=== PATIENT | male | born 1970 | race Caucasian/White ===

== ENCOUNTER 2016-11-03 15:11 | Outpatient (CLI) | payer OTHER | END 2016-11-03 15:12 | disposition home or self-care (01) | DX: R60.9 Edema, unspecified (principal) ==

== ENCOUNTER 2016-11-10 09:17 | Outpatient (CLI) | payer OTHER | END 2016-11-10 09:18 | disposition home or self-care (01) | DX: R06.02 Shortness of breath (principal); R60.9 Edema, unspecified ==

== ENCOUNTER 2016-11-29 08:35 | Outpatient (CLI) | payer OTHER | END 2016-11-29 08:36 | disposition home or self-care (01) | DX: L03.90 Cellulitis, unspecified (principal) ==

== ENCOUNTER 2016-12-14 09:20 | Outpatient (CLI) | payer OTHER | END 2016-12-14 09:21 | disposition home or self-care (01) | DX: L03.90 Cellulitis, unspecified (principal); R60.9 Edema, unspecified; Z79.899 Other long term (current) drug therapy; R73.9 Hyperglycemia, unspecified ==

== ENCOUNTER 2016-12-21 10:21 | Outpatient (CLI) | payer OTHER | END 2016-12-21 10:22 | disposition home or self-care (01) | DX: L03.90 Cellulitis, unspecified (principal) ==

== ENCOUNTER 2019-01-16 08:01 | Outpatient (CLI) | payer OTHER ==
[2019-01-16 12:59] LABS: BASOPHILS % (AUTO) 0.2 %; EOSINOPHILS # (AUTO) 0.3 10^3/uL (0.0-0.7); EOSINOPHILS % (AUTO) 5.2 %; HGB - HEMOGLOBIN 14.7 g/dL (14.0-18.0); LYMPHOCYTES # (AUTO) 2.5 10^3/uL (1.5-3.5); LYMPHOCYTES % (AUTO) 39.7 %; MEAN CORPUSCULAR HEMOGLOBIN 29.4 pg (27.0-31.0); MEAN CORPUSCULAR HGB CONC 32.8 g/dL (32.0-36.0); MEAN CORPUSCULAR VOLUME 89.7 fL (80.0-94.0); MEAN PLATELET VOLUME 7.9 fL (7.4-11.4); MONOCYTES # (AUTO) 0.5 10^3/uL (0.0-1.0); MONOCYTES % (AUTO) 8.5 %; NEUTROPHILS % (AUTO) 46.4 %; PLT - PLATELET COUNT 272 10^3/uL (130-450); RED CELL DISTRIBUTION WIDTH 13.9 % (12.0-15.0); WHITE BLOOD COUNT 6.4 x10^3/uL (4.8-10.8)
[2019-01-16 13:05] LABS: HB2 TOTAL 16.1 g/dL; HEMOGLOBIN A1C 0.6 g/dL; HEMOGLOBIN A1C % 5.6 % (4.6-6.2)
[2019-01-16 13:07] LABS: ALBUMIN 4.4 g/dL (3.2-5.5); ALBUMIN/GLOBULIN RATIO 1.3 (1.0-2.2); ALKALINE PHOSPHATASE 49 IU/L (42-121); ALT ALANINE AMINOTRANSFERASE 27 IU/L (10-60); AST ASPARTATE AMINOTRANSFERASE 30 IU/L (10-42); BILIRUBIN,TOTAL 1.5 mg/dL (0.2-1.0); BUN - BLOOD UREA NITROGEN 19 mg/dL (6-20); CARBON DIOXIDE - CO2 28 mmol/L (21-32); CHLORIDE 102 mmol/L (101-111); CHOL/HDL RATIO 2.8 (<5.0); CHOLESTEROL 200 mg/dL; CREATININE 0.9 mg/dL (0.6-1.2); GFR - MDRD 90 (>89); GLUCOSE 98 mg/dL (70-100); HDL CHOLESTEROL 72 mg/dL; SODIUM 136 mmol/L (135-145); TOTAL PROTEIN 7.8 g/dL (6.7-8.2)
[2019-01-16 14:41] LABS: LDL CHOLESTEROL,DIRECT 127 mg/dL; LDLD/HDL RATIO 1.8 (<3.6)
== END 2019-01-16 23:59 | disposition home or self-care (01) ==
LOC: LAB.WCP 08:01
PROVIDERS: ATTEND Family Medicine
DX: Z00.00 Encounter for general adult medical examination without abnormal findings (principal); Z13.1 Encounter for screening for diabetes mellitus; N40.0 Benign prostatic hyperplasia without lower urinary tract symptoms
CPT/HCPCS: 36415; 80053; 80061; 83036; 83721; 84153; 84443; 85025

== ENCOUNTER 2019-04-08 11:15 | Emergency (ER) | payer OTHER ==
[2019-04-08 11:21] VITALS: BP 108/80
--- NOTE | 2019-04-08 11:51 | XRAY Report ---
Reason: injury Procedure Date: 04/08/2019 Accession Number: [id number] / [id number] Procedure: XR - Ankle 3 View RT CPT Code: FULL RESULT: EXAM: RIGHT ANKLE RADIOGRAPHY EXAM DATE: 04/08/2019 11:38 AM. CLINICAL HISTORY: Pain. COMPARISON: ANKLE 3 VIEW RT 01/02/2017 9:02 AM. TECHNIQUE: 3 views. FINDINGS: Bones: Tiny calcaneal plantar bone spur. Otherwise normal. No fractures or bone lesions. Joints: Normal. No effusion. No subluxations. The ankle mortise is normally aligned. Soft Tissues: Normal. No soft tissue swelling. IMPRESSION: Normal ankle radiography. No significant change when compared to prior examination. RADIA
--- NOTE | 2019-04-08 12:12 | ED Physician Documentation ---
PD HPI LOWER EXT INJURY - Stated complaint Stated Complaint: R ANKLE INJ - Chief complaint Chief Complaint: Ext Problem - History obtained from History obtained from: Patient - History of Present Illness PD HPI LOW EXT INJURY LOCATION: Right, Ankle Type of injury: Fall (about 5 feet from ladder, last night, landed onto feet flatly, and had onset of right ankle pain. Has pain and swelling of ankle, unable to bear weight due to the pain.) Timing - onset: Last night Timing - duration: Days (1) Timing - details: Abrupt onset, Still present Worsened by: Moving, Palpating, Other (weight bearing) Associated symptoms: Swelling. No: Weakness, Numbness Contributing factors: No: Anticoagulated, Prior ortho surgery Similar symptoms before: Has not had sx before Recently seen: Not recently seen Review of Systems Skin: denies: Abrasion (s), Laceration (s) Musculoskeletal: denies: Back pain Neurologic: denies: Focal weakness, Numbness PD PAST MEDICAL HISTORY - Past Medical History Cardiovascular: None Respiratory: None Musculoskeletal: None - Past Surgical History Past Surgical History: No - Present Medications Home Medications: Ambulatory Orders Medication Instructions Recorded Confirmed Hydrocodone/Acetaminophen [[place] 1 each PO Q6H PRN #20 tablet 04/08/19 5-325 Tablet] Naproxen 375 mg PO BID #20 tablet 04/08/19 Tamsulosin HCl [Flomax] 0.4 mg PO 04/08/19 - Allergies Allergies/Adverse Reactions: Allergies Allergy/AdvReac Type Severity Reaction Status Date / Time No Known Drug Allergies Allergy Verified 04/08/19 11:21 - Social History Does the pt smoke?: No Smoking Status: Never smoker Does the pt drink ETOH?: No Does the pt have substance abuse?: No - Immunizations Immunizations are current?: Yes - POLST Patient has POLST: No PD ED PE NORMAL - Vitals Vital signs reviewed: Yes - General General: Alert and oriented X 3, Well developed/nourished - Derm Derm: Normal color, Warm and dry - Extremities Extremities: Other (right ankle with diffuse swelling and tenderness around the proximal foot/ankle. Achilles not tender. No ecchymosis. ) - Neuro Neuro: Alert and oriented X 3, No motor deficit, No sensory deficit Results - Vitals Vitals: Vital Signs - 24 hr 04/08/19 11:19 Temperature 36.5 C Heart Rate 106 H Respiratory 22 Rate Blood Pressure 108/80 O2 Saturation 96 Oxygen O2 Source Room air - Rads (name of study) right ankle xray Radiology: Prelim report reviewed (normal, no fractures), EMP read contemporaneously (subtle abnormal along medial talus. ), See rad report right ankle CT Radiology: Prelim report reviewed, EMP read contemporaneously (fracture inferior talus. ), See rad report PD MEDICAL DECISION MAKING - ED course Complexity details: reviewed results (ankle xray is normal, but mechanism and exam are suspicious for talar fracture, so got CT, which did demonstrate the fracture. ), considered differential, d/w patient Departure - Departure Disposition: Home, Self Care Clinical Impression: Fall from ladder Qualifiers: Encounter type: initial encounter Qualified Code(s): W11.XXXA - Fall on and from ladder, initial encounter Fracture, talus closed Qualifiers: Encounter type: initial encounter Talus location: body Fracture alignment: nondisplaced Laterality: right Qualified Code(s): S92.124A - Nondisplaced fracture of body of right talus, initial encounter for closed fracture Condition: Stable Record reviewed to determine appropriate education?: Yes Instructions: ED Fx Foot Follow-Up: Bo Phillips MD [Primary Care Provider] - Cristofer Jernigan MD [Provider Admit Priv/Credential] - Prescriptions: Hydrocodone/Acetaminophen [[place] 5-325 Tablet] 1 each PO Q6H PRN #20 tablet PRN Reason: Pain Naproxen 375 mg PO BID #20 tablet Comments: Use the ankle brace much of the time for the first week keep it on even when resting and sleeping most likely for comfort. Crutches for nonweightbearing initially until you follow-up with orthopedics. Follow-up with orthopedics next week, call later today for an appointment. Anti-inflammatory such as naproxen or ibuprofen twice daily with food for the next 7 to 10 days. Add Tylenol or pain medicine if needed for pain. Rest elevate and wrap the ankle often and apply ice often to reduce swelling. Discharge Date/Time: 04/08/19 14:14
[2019-04-08] MEDS ORDERED: IBUPROFEN 600 MG TABLET PO STA (12:47)
[2019-04-08] MEDS ORDERED: ACETAMINOPHEN 325 MG TABLET PO STA (12:47)
--- NOTE | 2019-04-08 14:36 | CT Report ---
Reason: ankle injury; concern for talar fx Procedure Date: 04/08/2019 Accession Number: [id number] / [id number] Procedure: CT - LOWER EXTREMITY WO - RT CPT Code: FULL RESULT: EXAM: RIGHT HIP CT WITHOUT CONTRAST EXAM DATE: 04/08/2019 01:12 PM. CLINICAL HISTORY: Ankle injury; concern for talar fracture. COMPARISON: ANKLE 3 VIEW RT 04/08/2019 11:30 AM. TECHNIQUE: Thin-section axial images were acquired of the hip without contrast. Post-processing: Coronal and sagittal reformats. Other: None. In accordance with CT protocol optimization, one or more of the following dose reduction techniques were utilized for this exam: automated exposure control, adjustment of mA and/or KV based on patient size, or use of iterative reconstructive technique. FINDINGS: Bones: Nondisplaced comminuted fracture at the posterior lateral aspect of the talus involves the posterior lateral subtalar joint. Series 8 image 126, series 9 image 76, series 3 image 115. There is about 1.5 mm of step-off at the articular surface. No other fractures. Joints: The visualized hip joint spaces are normal. No calcified loose bodies. No large effusions. The other visualized joint spaces are normal. Musculature: Normal. No fatty atrophy. Other: The visualized intraperitoneal structures are unremarkable. IMPRESSION: 1. Nondisplaced comminuted fracture of the posterior lateral aspect of the talus involves the posterior lateral subtalar joint. About 1.5 mm step-off at the articular surface. 2. No loose bodies or free fracture fragments are seen in the subtalar joint. 3. No other fractures. No subluxation or dislocation. RADIA
== END 2019-04-08 14:14 | disposition home or self-care (01) ==
LOC: ED 11:15
DX: S92.124A Nondisplaced fracture of body of right talus, initial encounter for closed fracture (principal); W11.XXXA Fall on and from ladder, initial encounter
CPT/HCPCS: 73610; 73700; 99283; A9270

== ENCOUNTER 2020-10-06 13:18 | Outpatient (CLI) | payer BC | END 2020-10-06 13:19 | disposition home or self-care (01) | LOC: COV 13:18 | PROVIDERS: ATTEND Family Medicine | DX: Z20.828 Contact with and (suspected) exposure to other viral communicable diseases (principal) ==

== ENCOUNTER 2020-10-12 15:12 | Outpatient (CLI) | payer BC | END 2020-10-12 15:13 | disposition home or self-care (01) | LOC: COV 15:12 | PROVIDERS: ATTEND Family Medicine | DX: Z20.828 Contact with and (suspected) exposure to other viral communicable diseases (principal) ==

== ENCOUNTER 2020-11-03 10:24 | Outpatient (CLI) | payer BC ==
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
== END 2020-11-03 10:25 | disposition home or self-care (01) ==
LOC: COV 10:24
PROVIDERS: ATTEND Family Medicine
DX: R53.83 Other fatigue (principal); R19.7 Diarrhea, unspecified; R09.81 Nasal congestion; J34.89 Other specified disorders of nose and nasal sinuses; Z20.822 Contact with and (suspected) exposure to COVID-19

== ENCOUNTER 2021-06-19 10:10 | Outpatient (CLI) | payer BC ==
[2021-06-19 10:12] LABS: MUDS CUTOFF CONCENTRATIONS CUTOFF CONC BELOW:
[2021-06-19 18:28] LABS: BASOPHILS % (AUTO) 0.6 %; EOSINOPHILS # (AUTO) 0.3 10^3/uL (0.0-0.7); EOSINOPHILS % (AUTO) 3.8 %; HCT - HEMATOCRIT 46.9 % (42.0-52.0); HGB - HEMOGLOBIN 14.7 g/dL (14.0-18.0); LYMPHOCYTES # (AUTO) 2.5 10^3/uL (1.5-3.5); LYMPHOCYTES % (AUTO) 34.7 %; MEAN CORPUSCULAR HEMOGLOBIN 29.2 pg (27.0-31.0); MEAN CORPUSCULAR HGB CONC 31.3 g/dL (32.0-36.0); MEAN CORPUSCULAR VOLUME 93.2 fL (80.0-94.0); MEAN PLATELET VOLUME 9.5 fL (7.4-11.4); MONOCYTES # (AUTO) 0.5 10^3/uL (0.0-1.0); MONOCYTES % (AUTO) 7.1 %; NEUTROPHILS # (AUTO) 3.8 10^3/uL (1.5-6.6); NEUTROPHILS % (AUTO) 53.7 %; PLT - PLATELET COUNT 288 10^3/uL (130-450); RED BLOOD COUNT 5.03 10^6/uL (4.70-6.10); RED CELL DISTRIBUTION WIDTH 13.1 % (12.0-15.0); WHITE BLOOD COUNT 7.1 x10^3/uL (4.8-10.8)
[2021-06-19 18:46] LABS: AMPHETAMINE SCREEN,URINE POSITIVE (NEGATIVE); BARBITURATE SCREEN,UR NEGATIVE (NEGATIVE); BENZODIAZEPINES SCREEN, URINE NEGATIVE (NEGATIVE); COCAINE SCREEN URINE NEGATIVE (NEGATIVE); METHADONE SCREEN, URINE NEGATIVE (NEGATIVE); METHAMPHETAMINES SCREEN, URINE POSITIVE (NEGATIVE); OPIATE SCREEN, URINE NEGATIVE (NEGATIVE); OXYCODONE SCREEN, URINE NEGATIVE (NEGATIVE); PROPOXYPHENE SCREEN, URINE NEGATIVE (NEGATIVE); THC CANNABINOID SCREEN, URINE NEGATIVE (NEGATIVE); TRICYCLIC ANTIDEPRESSANT,URINE NEGATIVE (NEGATIVE)
[2021-06-19 18:52] LABS: THYROID STIMULATING HORMONE 2.54 uIU/mL (0.34-5.60)
[2021-06-19 18:57] LABS: ALBUMIN 4.2 g/dL (3.2-5.5); ALBUMIN/GLOBULIN RATIO 1.3 (1.0-2.2); ALKALINE PHOSPHATASE 49 IU/L (42-121); ALT ALANINE AMINOTRANSFERASE 29 IU/L (10-60); AST ASPARTATE AMINOTRANSFERASE 23 IU/L (10-42); BILIRUBIN,TOTAL 1.6 mg/dL (0.2-1.0); BUN - BLOOD UREA NITROGEN 23 mg/dL (6-20); CALCIUM 8.9 mg/dL (8.5-10.3); CARBON DIOXIDE - CO2 29 mmol/L (21-32); CHLORIDE 103 mmol/L (101-111); CHOLESTEROL 225 mg/dL; CREATININE 0.9 mg/dL (0.6-1.2); GFR - MDRD 89 (>89); GLUCOSE 97 mg/dL (70-100); HDL CHOLESTEROL 76 mg/dL; LDL CHOLESTEROL,CALCULATED 136 mg/dL; LDL/HDL RATIO 1.8 (<3.6); POTASSIUM 3.9 mmol/L (3.5-5.0); SODIUM 138 mmol/L (135-145); TOTAL PROTEIN 7.5 g/dL (6.7-8.2); TRIGLYCERIDES 63 mg/dL; VLDL CHOLESTEROL 13 mg/dL
== END 2021-06-19 23:59 | disposition home or self-care (01) ==
LOC: LAB.WCP 10:10
PROVIDERS: ATTEND Family Medicine
DX: N40.0 Benign prostatic hyperplasia without lower urinary tract symptoms (principal); E87.6 Hypokalemia; R03.0 Elevated blood-pressure reading, without diagnosis of hypertension; F19.11 Other psychoactive substance abuse, in remission
CPT/HCPCS: 36415; 80053; 80061; 80306; 83721; 84153; 84443; 85025

== ENCOUNTER 2021-06-19 11:32 | Outpatient (CLI) | payer BC ==
--- NOTE | 2021-06-19 14:42 | XRAY Report ---
PROCEDURE: Hand 2 View BILAT INDICATIONS: BILATERAL HAND PX TECHNIQUE: 2 views of the hand(s) acquired. COMPARISON: X-ray hand 01/06/2013 FINDINGS: Bones: No acute fractures or dislocations. No suspicious bony lesions. Surgical pinning at site of old fracture is present at the proximal aspect of the second proximal phalanx. There is been promine nt interval subluxation at the second PIP joint as well as third DIP joint. There is an erosive appea haroon at the second PIP joint. Soft tissues: No suspicious soft tissue calcifications. IMPRESSION: 1. Postsurgical left second digit changes. 2. Subluxation of the left second and third digits as above suggestive of arthritis. Cannot exclude e rosive arthritides given appearance of second PIP joint. Reviewed by: Jane Garcia MD on 06/19/2021 2:41 PM PDT Approved by: Jane Garcia MD on 06/19/2021 2:41 PM PDT Station ID: [id number]
== END 2021-06-19 23:59 | disposition home or self-care (01) ==
LOC: DI.N 11:32
PROVIDERS: ATTEND Nurse Practitioner
DX: R93.6 Abnormal findings on diagnostic imaging of limbs (principal); Z96.698 Presence of other orthopedic joint implants; N40.0 Benign prostatic hyperplasia without lower urinary tract symptoms; E87.6 Hypokalemia; R03.0 Elevated blood-pressure reading, without diagnosis of hypertension; F19.11 Other psychoactive substance abuse, in remission
CPT/HCPCS: 36415; 80053; 80061; 80306; 83721; 84153; 84443; 85025

== ENCOUNTER 2021-12-27 10:30 | Outpatient (CLI) | payer OTHER ==
--- NOTE | 2021-12-27 14:13 | XRAY Report ---
PROCEDURE: Thoracic Spine 2 View INDICATIONS: Thoracic back pain TECHNIQUE: 3 views of the thoracic spine were acquired. COMPARISON: None. FINDINGS: Bones: Generalized osteopenia. Moderate compression deformity of an upper thoracic vertebral body, l ikely T5, which is of uncertain age. A chronic appearing ununited fracture of the T1 spinous process is seen. No suspicious bony lesions. 12 pairs of ribs are noted, and appear intact where visualized. Soft tissues: No paravertebral stripe thickening. IMPRESSION: Moderate compression deformity of the T5 vertebral body is of uncertain age. Recommend correlation fo r tenderness. MRI could be obtained to evaluate for marrow edema is indicated clinically Reviewed by: Leon Castanon MD on 12/27/2021 2:12 PM PST Approved by: Leon Castanon MD on 12/27/2021 2:12 PM PST Station ID: [id number]
== END 2021-12-27 10:31 | disposition home or self-care (01) ==
LOC: DI 10:30
PROVIDERS: ATTEND Surgery
DX: M43.8X4 Other specified deforming dorsopathies, thoracic region (principal)

== ENCOUNTER 2022-01-18 08:01 | Outpatient (CLI) | payer OTHER ==
--- NOTE | 2022-01-18 11:25 | MRI Report ---
PROCEDURE: Thoracic Spine W/O INDICATIONS: COLLAPSED VERTEBRA TECHNIQUE: Noncontrast sagittal T1 spine echo and T2 fast spin echo, sagittal STIR, axial T1 and T2 fast spin ec ho through the thoracic spine. COMPARISON: Thoracic spine plain films dated 12/27/2021. FINDINGS: Image quality: Excellent. Alignment and Curvature: There is normal bony alignment. Bone Marrow: There is a moderate subacute T5 compression fracture with approximately 50% midportion v ertebral body height loss. There are mild chronic compressions of L3 and L4. Spinal Cord: Visualized spinal cord is normal in size and signal. Paraspinous Soft Tissues: No paravertebral masses. Miscellaneous: On axial images, central canal and foramina appear widely patent at all scanned level s. IMPRESSION: 1. There is a moderate subacute T5 compression fracture with approximately 50% vertebral body height loss. There are also mild chronic compressions of T4 and T3. Comment: In this patient with multiple compression fractures, one of which is subacute, differential includes severe osteoporosis versus possible compression fractures secondary to underlying multiple m yeloma. Reviewed by: Gigi Snider MD on 01/18/2022 11:24 AM PDT Approved by: Gigi Snider MD on 01/18/2022 11:24 AM PDT Station ID: [id number]
== END 2022-01-18 08:02 | disposition home or self-care (01) ==
LOC: DI 08:01
PROVIDERS: ATTEND Family Medicine
DX: M48.54XA Collapsed vertebra, not elsewhere classified, thoracic region, initial encounter for fracture (principal)

== ENCOUNTER 2022-01-19 12:08 | Outpatient (CLI) | payer OTHER ==
[2022-01-23 10:17] LABS: IMMUNOGLOBULIN A 349 mg/dL (47-310); IMMUNOGLOBULIN G 1232 mg/dL (600-1640); IMMUNOGLOBULIN M 110 mg/dL (50-300)
[2022-01-24 13:51] LABS: KAPPA/LAMBDA LC FREE RATIO 1.02 (0.26-1.65)
== END 2022-01-19 12:09 | disposition home or self-care (01) ==
LOC: LAB.N 12:08
PROVIDERS: ATTEND Family Medicine
DX: M89.9 Disorder of bone, unspecified (principal)
CPT/HCPCS: 36415; 81599; 82040; 82784; 83883; 84270; 84403

== ENCOUNTER 2022-01-20 10:00 | Outpatient (CLI) | payer OTHER | END 2022-01-20 23:59 | disposition home or self-care (01) | LOC: LAB 10:00 | PROVIDERS: ATTEND Family Medicine | DX: M89.9 Disorder of bone, unspecified (principal) | CPT/HCPCS: 81599; 82570; 84156; 84166 ==

== ENCOUNTER 2022-02-02 08:04 | Outpatient (CLI) | payer OTHER ==
--- NOTE | 2022-02-02 10:39 | DEXA Report ---
PROCEDURE: Dexa Spine and/or Hip INDICATIONS: BONE DISORDER TECHNIQUE: Dual energy x-ray absorptiometry (DXA) was performed on a [employer] System. Regions measur ed are the AP Spine, femoral neck, and if needed forearm. COMPARISON: None. FINDINGS: Lumbar Spine: Bone Mineral Density 0.821 g/cm/cm,T score -3.3. Left Hip: Bone Mineral Density 0.916 g/cm/cm,T score -1.3. Left Femoral Neck: Bone Mineral Density 0.826 g/cm/cm, T score -1.9. (T score greater or equal to -1.0: NORMAL) (T score from -1.1 to -2.4: OSTEOPENIA) (T score less than or equal to -2.5 to: OSTEOPOROSIS) Impression: Osteoporosis. Patients with diagnosis of osteoporosis or osteopenia should have regular bone mineral density assess ment. For those eligible for Medicare, routine testing is allowed once every 2 years. Testing frequ ency can be increased for patients who have rapidly progressing disease or for those who are receivin g medical therapy to restore bone mass. Reviewed by: Janusz Levin MD on 02/02/2022 10:38 AM PDT Approved by: Janusz Levin MD on 02/02/2022 10:38 AM PDT Station ID: [id number]
== END 2022-02-02 08:05 | disposition home or self-care (01) ==
LOC: DI 08:04
PROVIDERS: ATTEND Family Medicine
DX: M81.0 Age-related osteoporosis without current pathological fracture (principal)

== ENCOUNTER 2023-10-18 11:45 | Outpatient (CLI) | payer SELFPAY ==
[2023-10-19 06:09] LABS: HSV 2 IGG TYPE SPEC <0.91 index (0.00-0.90)
== END 2023-10-18 12:00 | disposition home or self-care (01) ==
LOC: LAB.N 11:45
PROVIDERS: ATTEND Physician Assistant Medical
DX: R21 Rash and other nonspecific skin eruption (principal)
CPT/HCPCS: 86695; 86696; 87255; 87529